=== PATIENT | female | born 1965 | race African-American/Black ===

== ENCOUNTER 2024-05-16 06:58 | Emergency (ER) | payer OTHER ==
[~2024-05-16] VITALS: Ht 160 cm; Wt 68.0 kg
[2024-05-16 07:06] VITALS: O2SAT 98
[2024-05-16 08:08] LABS: BASOPHILS % 0.5 % (0.0-2.0); EOSINOPHILS % 0.4 % (0.0-5.0); HEMATOCRIT. 38.8 % (36.0-48.0); HEMOGLOBIN. 12.4 g/dL (12.0-16.0); LYMPHOCYTES % 18.1 % (20.0-50.0); MEAN CORPUSCULAR HEMOGLOBIN 30.1 pg (28.0-32.0); MEAN CORPUSCULAR HGB CONC 31.9 g/dL (31.0-37.0); MEAN CORPUSCULAR VOLUME 94.3 fL (81.0-99.0); MEAN PLATELET VOLUME 7.8 fl (7.4-10.4); MONOCYTES % 7.6 % (2.0-8.0); NEUTROPHILS % 73.4 % (40.0-76.0); PLATELET 275 x1000/uL (130-400); RED BLOOD CELL COUNT 4.11 mill/uL (4.2-5.4); RED CELL DISTRIBUTION WIDTH 12.6 % (11.6-14.6); WHITE BLOOD COUNT 11.4 x1000/uL (4.5-11.0)
[2024-05-16 08:21] LABS: CARBON DIOXIDE 24 mEq/L (21-32); CHLORIDE 112 mEq/L (98-107); POTASSIUM 3.6 mEq/L (3.5-5.1); SODIUM 145 mEq/L (136-145)
[2024-05-16 08:22] LABS: CALCIUM 9.6 mg/dL (8.7-10.4)
[2024-05-16 08:27] LABS: GLUCOSE 105 mg/dL (70-105); UREA NITROGEN BLOOD 11 mg/dL (9-23)
[2024-05-16 08:28] LABS: ACETAMINOPHEN < 2 ug/mL (10-30)
[2024-05-16 08:33] LABS: ETHANOL BLOOD < 10 mg/dL (<10)
[2024-05-16 09:40] VITALS: BP 120/90; PULSE 87; RESP 16; TEMP 36.94740; O2SAT 98
[2024-05-16 12:26] LABS: *AMPHETAMINES SCREEN URINE NEGATIVE (NEGATIVE); *BARBITURATES SCREEN URINE NEGATIVE (NEGATIVE); *BENZODIAZEPINES SCREEN URINE NEGATIVE (NEGATIVE); *COCAINE SCREEN URINE NEGATIVE (NEGATIVE); CANNABINOID URINE SCREEN NEGATIVE (NEGATIVE); METHADONE URINE SCREEN NEGATIVE (NEGATIVE); OPIATES URINE SCREEN NEGATIVE (NEGATIVE); PHENCYCLIDINE URINE SCREEN NEGATIVE (NEGATIVE)
[2024-05-16 12:27] LABS: ECSTASY MDMA SCREEN URINE NEGATIVE (NEGATIVE)
[2024-05-16 16:11] VITALS: TEMP 98.5
[2024-05-16] MEDS: ACETAMINOPHEN 325MG TABLET PO ONE (16:11)
== END 2024-05-16 19:00 | disposition home or self-care (01) ==
LOC: ER 07:23
DX: I25.2 Old myocardial infarction (principal); F41.9 Anxiety disorder, unspecified; F32.9 Major depressive disorder, single episode, unspecified; Z20.822 Contact with and (suspected) exposure to COVID-19
CPT/HCPCS: 36415; 80048; 80305; 80307; 80320; 80329; 82962; 85025; 87426; 99283; G0480

== ENCOUNTER 2024-05-17 02:02 | Inpatient (IN) | payer OTHER ==
[~2024-05-17] VITALS: Ht 162.6 cm; Wt 58.5 kg
[2024-05-17 02:46] LABS: BASOPHILS % 0.8 % (0.0-2.0); EOSINOPHILS % 2.5 % (0.0-5.0); HEMATOCRIT. 40.7 % (36.0-48.0); HEMOGLOBIN. 13.1 g/dL (12.0-16.0); MEAN CORPUSCULAR HEMOGLOBIN 30.3 pg (28.0-32.0); MEAN CORPUSCULAR HGB CONC 32.1 g/dL (31.0-37.0); MEAN CORPUSCULAR VOLUME 94.5 fL (81.0-99.0); MEAN PLATELET VOLUME 7.6 fl (7.4-10.4); MONOCYTES % 7.1 % (2.0-8.0); NEUTROPHILS % 51.6 % (40.0-76.0); PLATELET 282 x1000/uL (130-400); RED BLOOD CELL COUNT 4.31 mill/uL (4.2-5.4); WHITE BLOOD COUNT 10.1 x1000/uL (4.5-11.0)
[2024-05-17 02:51] LABS: CHLORIDE 109 mEq/L (98-107); POTASSIUM 4.4 mEq/L (3.5-5.1); SODIUM 143 mEq/L (136-145)
[2024-05-17 02:52] LABS: CARBON DIOXIDE 27 mEq/L (21-32)
[2024-05-17 02:57] LABS: CREATININE 1.1 mg/dL (0.6-1.0); GLUCOSE 96 mg/dL (70-105); UREA NITROGEN BLOOD 11 mg/dL (9-23)
[2024-05-17 03:19] LABS: ALANINE AMINOTRANSFERASE 23 IU/L (10-49)
[2024-05-17 03:20] LABS: ASPARTATE AMINOTRANSFERASE 56 IU/L (<34); BILIRUBIN DIRECT 0.1 mg/dL (<=3.0); BILIRUBIN TOTAL 0.5 mg/dL (0.1-1.0); PROTEIN TOTAL 7.6 g/dL (6.0-8.3)
[2024-05-17 03:39] LABS: ALBUMIN 4.7 g/dL (3.2-4.8)
[2024-05-17 05:05] LABS: CLARITY URINE CLEAR (CLEAR); COLOR URINE YELLOW (YELLOW); GLUCOSE URINE NEGATIVE (NEGATIVE); KETONES URINE TRACE (NEGATIVE); LEUKOCYTE ESTERASE URINE 1+ (NEGATIVE); NITRITE URINE NEGATIVE (NEGATIVE); OCCULT BLOOD URINE NEGATIVE (NEGATIVE); PH URINE 5.5 (4.5-8.0); PROTEIN URINE TRACE (NEGATIVE); SPECIFIC GRAVITY URINE 1.031 (1.005-1.030)
[2024-05-17] MEDS: ACETAMINOPHEN 325MG TABLET PO ONE (05:31)
[2024-05-17] MEDS ORDERED: DICYCLOMINE 10 MG/5 ML ORAL SYR PO STA (05:39)
[2024-05-17] MEDS ORDERED: KETOROLAC 30MG/ML VIAL IV STA (05:39)
[2024-05-17] MEDS ORDERED: MAGNESIUM/ALUMINUM HYDROXIDE/SIMETHICONE 30ML UDC PO STA (05:39)
[2024-05-17] MEDS ORDERED: ONDANSETRON HCL 4MG/2ML INJ IV STA (05:39)
[2024-05-17] MEDS: ONDANSETRON HCL 4MG/2ML INJ IV NR (05:45)
[2024-05-17] MEDS: KETOROLAC 30MG/ML VIAL IV NR (05:45)
[2024-05-17] MEDS: SODIUM CHLORIDE 0.9% 1,000 ML IV ONE (07:00)
[2024-05-17] MEDS: DICYCLOMINE HCL 10MG CAPSULE PO NR (07:06)
[2024-05-17] MEDS: MAGNESIUM/ALUMINUM HYDROXIDE/SIMETHICONE 30ML UDC PO NR (07:06)
[2024-05-17 07:41] LABS: SQUAMOUS EPITHELIAL CELL URINE FEW /lpf (RARE/1+)
[2024-05-17 07:42] LABS: RBC URINE 0-2 /hpf (0-2)
[2024-05-17 07:44] LABS: BACTERIA URINE NONE SEEN
[2024-05-17] MEDS: CEFTRIAXONE 1GM/50ML 50 ML IV SCH (10:00)
[2024-05-17 12:00] VITALS: BP 113/50; PULSE 83; RESP 19; TEMP 35.78064; TEMP 35.8064; O2SAT 97
[2024-05-17] MEDS ORDERED: IPRATROPIUM/ALBUTEROL 0.5-3(2.5)MG/3ML NEB HHN PRN (14:45)
[2024-05-17] MEDS ORDERED: ACETAMINOPHEN 325MG TABLET PO PRN (14:45)
[2024-05-17 16:00] VITALS: BP 121/64; PULSE 79; RESP 19; TEMP 36.3918; O2SAT 98
[2024-05-17 17:02] LABS: *AMPHETAMINES SCREEN URINE NEGATIVE (NEGATIVE); *BARBITURATES SCREEN URINE NEGATIVE (NEGATIVE); *BENZODIAZEPINES SCREEN URINE NEGATIVE (NEGATIVE); *COCAINE SCREEN URINE NEGATIVE (NEGATIVE); CANNABINOID URINE SCREEN NEGATIVE (NEGATIVE); ECSTASY MDMA SCREEN URINE NEGATIVE (NEGATIVE); METHADONE URINE SCREEN NEGATIVE (NEGATIVE); OPIATES URINE SCREEN NEGATIVE (NEGATIVE); PHENCYCLIDINE URINE SCREEN NEGATIVE (NEGATIVE)
[2024-05-17] MEDS: PANTOPRAZOLE SODIUM 40 MG/VIAL IV SCH (18:52)
[2024-05-17] MEDS: HYDROCODONE/ACETAMINOPHEN 5/325MG TABLET PO PRN (18:52)
[2024-05-17] MEDS: ENOXAPARIN 40MG/0.4ML SYR SUBCUT SCH (18:52)
[2024-05-17] MEDS: DEXT 5%/0.45% NACL 1000ML 1,000 ML IV SCH (18:53)
[2024-05-17 20:00] VITALS: BP 112/53; PULSE 71; RESP 18; TEMP 37.00296; O2SAT 100
[2024-05-17] MEDS ORDERED: NALOXONE HCL 0.4MG/ML VIAL IV PRN (20:30)
[2024-05-18] VITALS: BP 127/66; PULSE 63; RESP 16; TEMP 36.3918; O2SAT 98
[2024-05-18 04:00] VITALS: BP 135/70; PULSE 71; RESP 18; TEMP 36.22512; O2SAT 100
[2024-05-18 07:19] LABS: CARBON DIOXIDE 27 mEq/L (21-32); CHLORIDE 109 mEq/L (98-107); POTASSIUM 4.2 mEq/L (3.5-5.1); SODIUM 142 mEq/L (136-145)
[2024-05-18 07:20] LABS: CALCIUM 9.3 mg/dL (8.7-10.4)
[2024-05-18 07:25] LABS: GLUCOSE 89 mg/dL (70-105); T4 FREE 0.96 ng/dL (0.89-1.76); THYROID STIMULATING HORMONE 0.68 uIU/mL (0.55-4.78); UREA NITROGEN BLOOD 9 mg/dL (9-23)
[2024-05-18 08:20] LABS: BASOPHILS % 0.4 % (0.0-2.0); EOSINOPHILS % 3.4 % (0.0-5.0); HEMATOCRIT. 37.4 % (36.0-48.0); HEMOGLOBIN. 12.3 g/dL (12.0-16.0); LYMPHOCYTES % 52.6 % (20.0-50.0); MEAN CORPUSCULAR HEMOGLOBIN 31.2 pg (28.0-32.0); MEAN CORPUSCULAR VOLUME 94.7 fL (81.0-99.0); MEAN PLATELET VOLUME 8.7 fl (7.4-10.4); MONOCYTES % 8.8 % (2.0-8.0); NEUTROPHILS % 34.8 % (40.0-76.0); PLATELET 227 x1000/uL (130-400); RED BLOOD CELL COUNT 3.95 mill/uL (4.2-5.4); RED CELL DISTRIBUTION WIDTH 12.5 % (11.6-14.6); WHITE BLOOD COUNT 6.7 x1000/uL (4.5-11.0)
[2024-05-18 12:00] VITALS: BP 123/50; PULSE 83; RESP 18; TEMP 37.00296; O2SAT 100
[2024-05-18] MEDS ORDERED: LEVO250T74 MT (12:10)
[2024-05-18 16:00] VITALS: BP 124/72; PULSE 75; RESP 18; TEMP 37.00296; O2SAT 100
[2024-05-18 20:00] VITALS: BP 117/58; PULSE 76; RESP 18; TEMP 36.114; O2SAT 100
[2024-05-19] VITALS: BP 120/55; PULSE 63; RESP 19; TEMP 36.33624; O2SAT 100
[2024-05-19 04:00] VITALS: BP 127/63; PULSE 63; RESP 20; TEMP 36.22512; O2SAT 100
[2024-05-19 08:00] VITALS: BP 143/64; PULSE 57; RESP 16; TEMP 36.72516; O2SAT 98
[2024-05-19 12:00] VITALS: BP 129/64; PULSE 81; RESP 18; TEMP 36.6696; O2SAT 98
[2024-05-19 20:00] VITALS: BP 196/64; PULSE 74; RESP 19; TEMP 36.44736; O2SAT 99
[2024-05-20] VITALS: BP 108/49; PULSE 54; RESP 19; TEMP 36.78072; O2SAT 98
[2024-05-20 04:00] VITALS: BP 128/59; PULSE 72; RESP 19; TEMP 36.61404; O2SAT 99
[2024-05-20 08:00] VITALS: BP 113/44; PULSE 61; RESP 18; TEMP 35.61396; O2SAT 98
[2024-05-20 10:07] LABS: HEMATOCRIT 39.2 % (36.0-48.0); HEMOGLOBIN 12.8 g/dL (12.0-16.0); MEAN CORPUSCULAR HEMOGLOBIN 30.5 pg (28.0-32.0); MEAN CORPUSCULAR HGB CONC 32.7 g/dL (31.0-37.0); MEAN CORPUSCULAR VOLUME 93.5 fL (81.0-99.0); PLATELET 244 x1000/uL (130-400); RED BLOOD CELL COUNT 4.19 mill/uL (4.2-5.4); RED CELL DISTRIBUTION WIDTH 12.8 % (11.6-14.6)
[2024-05-20 10:15] LABS: CHLORIDE 107 mEq/L (98-107); POTASSIUM 4.3 mEq/L (3.5-5.1); SODIUM 142 mEq/L (136-145)
[2024-05-20 10:16] LABS: CALCIUM 9.9 mg/dL (8.7-10.4); CARBON DIOXIDE 29 mEq/L (21-32)
[2024-05-20 10:21] LABS: CREATININE 1.1 mg/dL (0.6-1.0); GLUCOSE 94 mg/dL (70-105); UREA NITROGEN BLOOD 10 mg/dL (9-23)
[2024-05-20 20:00] VITALS: BP 144/88; PULSE 83; RESP 18; TEMP 36.61404; O2SAT 96
[2024-05-20] MEDS: ONDANSETRON HCL 4MG/2ML INJ IV PRN (22:18)
[2024-05-21] VITALS: BP 140/88; PULSE 89; RESP 18; TEMP 36.50292; O2SAT 97
[2024-05-21 04:00] VITALS: BP 101/52; PULSE 54; RESP 18; TEMP 36.00288; O2SAT 98
[2024-05-21] MEDS: ARIPIPRAZOLE 5MG TABLET PO SCH (08:28)
[2024-05-21 12:00] VITALS: BP 142/58; PULSE 70; RESP 18; TEMP 36.22512; O2SAT 97
[2024-05-21 12:25] VITALS: RESP 18
[2024-05-21 12:58] VITALS: BP 142/58; PULSE 70; TEMP 97.2; O2SAT 97
== END 2024-05-21 14:30 | DRG 690 ==
LOC: ER 02:02 → 6EST 07:22
PROVIDERS: ADMIT Internal Medicine; ATTEND Internal Medicine
DX: N39.0 Urinary tract infection, site not specified (principal); R45.851 Suicidal ideations; Z59.00 Homelessness unspecified; G89.29 Other chronic pain; F29 Unspecified psychosis not due to a substance or known physiological condition; F31.9 Bipolar disorder, unspecified; F41.9 Anxiety disorder, unspecified
CPT/HCPCS: 36415; 74176; 76700; 80048; 80061; 80076; 80305; 81003; 83036; 84439; 84443; 85025; 85027; 99285; J0696; J1650; J1885; J2405; J2470; J7030